=== PATIENT | female | born 1955 | race Caucasian/White ===

== ENCOUNTER 2017-03-09 21:11 | Inpatient (IN) ==
[2017-03-09] MEDS ORDERED: 0.9 % Sodium Chloride 1,000 ML IVC ONE (21:45)
[2017-03-09 22:09] LABS: Basophils % 0.1 %; Eosinophils # 0.1 K/mcL (0.0-0.6); Eosinophils % 0.4 %; Hematocrit 42.3 % (35.3-44.9); Hemoglobin 14.1 g/dL (11.5-15.4); Immature Granulocytes % 0.2 % (0-4); Lymphocytes # 1.6 K/mcL (0.6-4.6); Lymphocytes % 11.9 %; Mean Corpuscular HGB Conc 33.3 g/dL (31.6-35.5); Mean Corpuscular Hemoglobin 32.3 pg (28.0-33.3); Mean Platelet Volume 9.2 fL (9.4-12.4); Monocytes % 7.1 %; Neutrophils # 11.1 K/mcL (1.6-8.9); Platelet Count 310 K/mcL (140-400); Red Blood Count 4.36 M/mcL (3.82-4.97); Red Cell Distribution Width 12.8 % (11.5-14.5); Segmented Neutrophils % 80.3 %
[2017-03-09 22:17] LABS: INR 1.1; Prothrombin Time 11.5 Seconds (9.4-12.1)
[2017-03-09 22:20] LABS: Activated Partial Thrombo Time 27.5 Seconds (26.0-36.0)
[2017-03-09 22:24] LABS: BUN/Creatinine Ratio 25 (6-26); Blood Urea Nitrogen 23 mg/dL (7-20); Calcium 9.7 mg/dL (8.6-10.8); Carbon Dioxide 27 mEq/L (19-29); Chloride 101 mEq/L (98-109); Glucose 116 mg/dL (70-99); Osmolality,Calculated 295 (280-300); Sodium 140 mEq/L (136-145); eGFR For African Americans > 60 (> 60); eGFR For Non-African Americans > 60 (> 60)
[2017-03-09 22:25] LABS: Potassium 3.6 mEq/L (3.5-4.5)
[2017-03-09] MEDS ORDERED: MetroNIDAZOLE 500 MG/100 ML 500 MG/100 ML BAG IVPB ONE (22:36)
[2017-03-09] MEDS ORDERED: Levofloxacin 750 MG/150 ML 750 MG/150 ML BAG IVPB ONE (22:36)
[2017-03-09 22:45] LABS: Alanine Aminotransferase 17 Units/L (0-55); Albumin 3.7 g/dL (3.5-5.0); Albumin/Globulin Ratio 0.9 (1.1-2.2); Alkaline Phosphatase 80 Units/L (38-126); Aspartate Amino Transferase 23 Units/L (5-34); Bilirubin,Direct 0.1 mg/dL (0.0-0.5); Bilirubin,Indirect 0.3 mg/dL (0.0-1.2); Bilirubin,Total 0.4 mg/dL (0.2-1.2); Globulin 4.3 g/dL (2.4-3.5)
[2017-03-09] MEDS ORDERED: SUMAtriptan 6 MG/0.5 ML SQ ONE (23:10)
--- NOTE | 2017-03-09 23:20 | Emergency Department Note ---
START Narrative - START START: I examined this patient and my medical decision-making was reviewed with the Resident Physician. I agree with the documented findings, disposition and treatment plan as described except to the extent set forth below. 61-year-old female presents emergency room for abdominal pain. She has had explosive diarrhea and cramping and bloody stool. CT abdomen and pelvis shows evidence of diffuse colitis involving multiple portions of the colon. She also has evidence of diverticulitis. She has had this bloody diarrhea. She had a normal lactate. I do not suspect ischemic bowel at this time. Her EKG did not show any evidence of atrial fibrillation. The CT was done without IV contrast initially as I felt we needed to evaluate for other things first and avoid the contrast. She is getting IV fluids as well as pain control. We have ordered Levaquin and Flagyl. She had a previous colon resection secondary to bowel perforation from diverticulitis. This surgery was done in 2007 at [facility]. She is hemodynamically stable at this time. She is in town visiting family for the . Critical care time 35 minutes spent and medical management of severe colitis and diverticulitis as well as bloody diarrhea with IV fluids and IV antibiotics.
--- NOTE | 2017-03-09 23:41 | Emergency Department Note ---
Disposition Clinical Impression: Diverticulitis GI bleed Qualifiers: GI bleed type/associated pathology: unspecified gastrointestinal hemorrhage type Qualified Code(s): K92.2 - Gastrointestinal hemorrhage, unspecified Disposition: Admitted As Inpatient Condition: Fair Referrals: NONE,PCP [Primary Care Provider] - Forms: ED Satisfaction Letter Time of Disposition: 00:05 General Adult HPI - General Chief complaint: ED GI Bleed Stated complaint: abdominal pain/ GI bleeding Time Seen by Provider: 03/09/17 21:22 Source: patient Mode of arrival: ambulatory Limitations: no limitations Nursing Notes Reviewed: Yes Vital Signs Reviewed: Yes - History of Present Illness HPI Narrative: 61-year-old female presenting to the emergency department she complained of abdominal pain and blood per rectum. Patient states she was driving in from [place] when during the drive started getting abdominal pain. She states she felt like she had a use the restroom but every time she stops she only had a small bowel movement. When she got to her destination patient states she spent the entire evening and this morning having explosive diarrhea. She states late last evening she noticed blood on her toilet paper and then this morning when she had multiple episodes of diarrhea she noticed blood in the toilet. Patient has a significant past medical history of complicated Diverticulitis with a colectomy in the past. Patient states she has nausea but denies vomiting. She denies any other bleeding including gingival bleeding or hematuria. Patient is otherwise healthy. Pain Scale: 8 - Related Data Home Medications Medication Instructions Recorded Confirmed Atenolol [Tenormin] 50 mg PO DAILY 03/09/17 03/09/17 Calcium Carbonate [Calcium] 1,000 mg PO DAILY 03/09/17 03/09/17 Cyanocobalamin (B-12) [Vitamin B12] 1,000 mcg IM QMONTH 03/09/17 03/09/17 DULoxetine [Cymbalta] 90 mg PO DAILY 03/09/17 03/09/17 Ergocalciferol (VITAMIN D2) 50,000 unit PO Q2W 03/09/17 03/09/17 [Vitamin D2] Gabapentin [Neurontin] 300 mg PO HS 03/09/17 03/09/17 Gabapentin [Neurontin] 600 mg PO QAM 03/09/17 03/09/17 Lisinopril [Zestril] 5 mg PO DAILY 03/09/17 03/09/17 Teriparatide [Forteo] 2.4 ml SQ HS 03/09/17 03/09/17 Trazodone HCl 100 mg PO HS 03/09/17 03/09/17 hydroCHLOROthiazide 25 mg PO DAILY 03/09/17 03/09/17 [Hydrochlorothiazide] Allergies Allergy/AdvReac Type Severity Reaction Status Date / Time acetaminophen [From NyQuil] Allergy Anaphylaxis Verified 03/09/17 21:19 Cefadroxil [From Duricef] Allergy Difficulty Verified 03/09/17 23:06 Breathing dextromethorphan Allergy Anaphylaxis Verified 03/09/17 21:19 [From NyQuil] doxycycline Allergy Hives Verified 03/09/17 23:06 doxylamine [From NyQuil] Allergy Anaphylaxis Verified 03/09/17 21:19 Erythromycin Base Allergy Hives Verified 03/09/17 23:06 Grapefruit Allergy Anaphylaxis Verified 03/09/17 21:19 Hydromorphone [From Dilaudid] Allergy Hallucinati Verified 03/09/17 23:06 ng levofloxacin [From Levaquin] Allergy Gastrointestinal Verified 03/09/17 23:08 Upset morphine Allergy Confusion Verified 03/09/17 23:06 pseudoephedrine [From NyQuil] Allergy Difficulty Verified 03/09/17 23:06 Breathing Sulfa (Sulfonamide Allergy Hives Verified 03/09/17 21:19 Antibiotics) fentanyl AdvReac Difficulty Verified 03/09/17 21:19 Breathing All systems ED: reviewed and negative except as stated. Constitutional: Denies: fever, chills Eyes: Reports: as per HPI ENT ED: Reports: as per HPI Cardiovascular: Denies: chest pain, palpitations Respiratory: Denies: cough, dyspnea, wheezes Gastrointestinal: Reports: abdominal pain, nausea, diarrhea, hematemesis Genitourinary: Reports: as per HPI Musculoskeletal: Reports: as per HPI Integumentary: Denies: rash, abrasion, lesions Neurological: Reports: as per HPI Psychiatric: Reports: as per HPI Endocrine: Reports: as per HPI Hematological/Lymphatic: Reports: as per HPI Allergic/Immunologic: Reports: as per HPI Past Medical History - Past Medical History Attestation: Yes The following information was validated with the patient. Medical history: Reports: GERD, hypertension, migraine, osteoporosis, other Psychiatric history: Reports: depression - Social History Smoking Status: Never smoker Alcohol use: Reports: occasionally Drug use: Reports: none Physical Exam - General Limitations: no limitations General appearance: alert, in no apparent distress - Head Head exam: atraumatic, normocephalic, normal inspection - Eye Eye exam: Present: normal appearance. Absent: scleral icterus, conjunctival injection - Chest Chest inspection: Present: normal inspection, symmetric chest wall rise. Absent : tenderness, rash - Respiratory Respiratory exam: Present: normal lung sounds bilaterally. Absent: respiratory distress, wheezes - Cardiovascular Cardiovascular exam: Present: normal rhythm, tachycardia, normal heart sounds - Abdominal Exam Abdominal exam: Present: soft, tenderness. Absent: guarding, rebound, rigidity , organomegaly, Malone's sign, Rovsing's sign, tenderness at McBurney's Point Abdominal tenderness: Present: diffuse, moderate - Extremities Exam Extremities exam: Present: normal inspection, full ROM - Neurological Exam Neurological exam: Present: alert, oriented X3 - Psychiatric Psychiatric exam: Present: normal affect, normal mood - Skin Skin exam: Present: warm, intact Course Course Narrative: 61-year-old female presenting to the emergency Department chief complaint of blood per rectum. Concern for GI bleed at this time. Patient is nontoxic appearing and able to respond to questions appropriately. Her vital signs are stable. We will obtain basic lab work including type and screen along with abdominal labs. We will also obtain a CT of the abdomen and pelvis. Disposition pending results. Patient's alert and oriented 3 in the room with stable vital signs. She agrees with this plan. We will also provide the patient with a liter of fluids at this time. - Reevaluation(s) Reevaluation #1: Patient's CT results have come back and show 1. Large segments of transverse colon, splenic flexure, and descending colon demonstrate wall thickening with adjacent inflammatory changes. This may be related to an infectious/inflammatory colitis. Underlying ischemic bowel cannot entirely be excluded given this study did not use intravenous contrast. This likely represents the source for GI bleeding. 2. Acute descending/sigmoid colon diverticulitis. No abscess or fluid collection. Patient also has a white count of 13.8 and a positive stool culture. At this time we will begin antibiotics via IV. We will admit the patient at this time. Page at hospitalist has been completed. Patient's alert and oriented 3 in the room with stable vital signs. Patient agrees with this plan. Reevaluation #2: Hospitalist on-call Dr. Chen excepts the patient at this time. Patient's alert and oriented 3 in the room. Her vital signs are stable at time of admission. Time: 00:04 Vital Signs Temperature 97.8 F 03/09/17 21:12 Pulse Rate 101 03/09/17 21:12 Respiratory Rate 16 03/09/17 21:12 Blood Pressure 105/59 03/09/17 21:12 O2 Sat by Pulse Oximetry 97 03/09/17 21:12 Temperature 97.8 F 03/09/17 21:12 Pulse Rate 89 03/09/17 22:53 Respiratory Rate 18 03/09/17 22:53 Blood Pressure 132/73 03/09/17 22:53 O2 Sat by Pulse Oximetry 98 03/09/17 22:53 Oxygen Delivery Oxygen Delivery Room Air Medical Decision Making - Lab Data Result diagrams: 03/09/17 22:00 03/09/17 22:00 Lab Results 03/09/17 03/09/17 03/09/17 Range/Units 22:00 22:00 22:00 WBC 13.8 H (4.3-11.1) K/mcL RBC 4.36 (3.82-4.97) M/mcL Hgb 14.1 (11.5-15.4) g/dL Hct 42.3 (35.3-44.9) % MCV 97.0 (83.0-100.0) fL MCH 32.3 (28.0-33.3) pg MCHC 33.3 (31.6-35.5) g/dL RDW 12.8 (11.5-14.5) % Plt Count 310 (140-400) K/mcL MPV 9.2 L (9.4-12.4) fL Immature Gran % 0.2 (0-4) % Seg Neutrophils % 80.3 % Lymphocytes % 11.9 % Monocytes % 7.1 % Eosinophils % 0.4 % Basophils % 0.1 % Neutrophils # 11.1 H (1.6-8.9) K/mcL Lymphocytes # 1.6 (0.6-4.6) K/mcL Monocytes # 1.0 (0.0-1.3) K/mcL Eosinophils # 0.1 (0.0-0.6) K/mcL Basophils # 0.0 (0.0-0.2) K/mcL PT 11.5 (9.4-12.1) Seconds INR 1.1 APTT 27.5 (26.0-36.0) Seconds Sodium 140 (136-145) mEq/L Potassium 3.6 (3.5-4.5) mEq/L Chloride 101 (98-109) mEq/L Carbon Dioxide 27 (19-29) mEq/L BUN 23 H (7-20) mg/dL Creatinine 0.91 (0.57-1.11) mg/dL Est GFR ( Amer) > 60 (> 60) Est GFR (Non-Af Amer) > 60 (> 60) BUN/Creatinine Ratio 25 (6-26) Glucose 116 H (70-99) mg/dL Calculated Osmolality 295 (280-300) Lactic Acid (0.5-2.2) mmol/L Calcium 9.7 (8.6-10.8) mg/dL Total Bilirubin 0.4 (0.2-1.2) mg/dL Direct Bilirubin 0.1 (0.0-0.5) mg/dL Indirect Bilirubin 0.3 (0.0-1.2) mg/dL AST 23 (5-34) Units/L ALT 17 (0-55) Units/L Alkaline Phosphatase 80 (38-126) Units/L Serum Total Protein 8.0 (6.0-8.3) g/dL Albumin 3.7 (3.5-5.0) g/dL Globulin 4.3 H (2.4-3.5) g/dL Albumin/Globulin Ratio 0.9 L (1.1-2.2) Stool Occult Blood (Negative) Specimen Rejected Blood Type Antibody Screen 03/09/17 03/09/17 03/09/17 Range/Units 22:00 22:00 22:02 WBC (4.3-11.1) K/mcL RBC (3.82-4.97) M/mcL Hgb (11.5-15.4) g/dL Hct (35.3-44.9) % MCV (83.0-100.0) fL MCH (28.0-33.3) pg MCHC (31.6-35.5) g/dL RDW (11.5-14.5) % Plt Count (140-400) K/mcL MPV (9.4-12.4) fL Immature Gran % (0-4) % Seg Neutrophils % % Lymphocytes % % Monocytes % % Eosinophils % % Basophils % % Neutrophils # (1.6-8.9) K/mcL Lymphocytes # (0.6-4.6) K/mcL Monocytes # (0.0-1.3) K/mcL Eosinophils # (0.0-0.6) K/mcL Basophils # (0.0-0.2) K/mcL PT (9.4-12.1) Seconds INR APTT (26.0-36.0) Seconds Sodium (136-145) mEq/L Potassium (3.5-4.5) mEq/L Chloride (98-109) mEq/L Carbon Dioxide (19-29) mEq/L BUN (7-20) mg/dL Creatinine (0.57-1.11) mg/dL Est GFR ( Amer) (> 60) Est GFR (Non-Af Amer) (> 60) BUN/Creatinine Ratio (6-26) Glucose (70-99) mg/dL Calculated Osmolality (280-300) Lactic Acid 1.4 (0.5-2.2) mmol/L Calcium (8.6-10.8) mg/dL Total Bilirubin (0.2-1.2) mg/dL Direct Bilirubin (0.0-0.5) mg/dL Indirect Bilirubin (0.0-1.2) mg/dL AST (5-34) Units/L ALT (0-55) Units/L Alkaline Phosphatase (38-126) Units/L Serum Total Protein (6.0-8.3) g/dL Albumin (3.5-5.0) g/dL Globulin (2.4-3.5) g/dL Albumin/Globulin Ratio (1.1-2.2) Stool Occult Blood Positive A (Negative) Specimen Rejected Hemolyzed Blood Type Antibody Screen 03/09/17 Range/Units 22:30 WBC (4.3-11.1) K/mcL RBC (3.82-4.97) M/mcL Hgb (11.5-15.4) g/dL Hct (35.3-44.9) % MCV (83.0-100.0) fL MCH (28.0-33.3) pg MCHC (31.6-35.5) g/dL RDW (11.5-14.5) % Plt Count (140-400) K/mcL MPV (9.4-12.4) fL Immature Gran % (0-4) % Seg Neutrophils % % Lymphocytes % % Monocytes % % Eosinophils % % Basophils % % Neutrophils # (1.6-8.9) K/mcL Lymphocytes # (0.6-4.6) K/mcL Monocytes # (0.0-1.3) K/mcL Eosinophils # (0.0-0.6) K/mcL Basophils # (0.0-0.2) K/mcL PT (9.4-12.1) Seconds INR APTT (26.0-36.0) Seconds Sodium (136-145) mEq/L Potassium (3.5-4.5) mEq/L Chloride (98-109) mEq/L Carbon Dioxide (19-29) mEq/L BUN (7-20) mg/dL Creatinine (0.57-1.11) mg/dL Est GFR ( Amer) (> 60) Est GFR (Non-Af Amer) (> 60) BUN/Creatinine Ratio (6-26) Glucose (70-99) mg/dL Calculated Osmolality (280-300) Lactic Acid (0.5-2.2) mmol/L Calcium (8.6-10.8) mg/dL Total Bilirubin (0.2-1.2) mg/dL Direct Bilirubin (0.0-0.5) mg/dL Indirect Bilirubin (0.0-1.2) mg/dL AST (5-34) Units/L ALT (0-55) Units/L Alkaline Phosphatase (38-126) Units/L Serum Total Protein (6.0-8.3) g/dL Albumin (3.5-5.0) g/dL Globulin (2.4-3.5) g/dL Albumin/Globulin Ratio (1.1-2.2) Stool Occult Blood (Negative) Specimen Rejected Blood Type A POSITIVE Antibody Screen NEGATIVE - EKG Data EKG #1 EKG attestation: Yes I reviewed and interpreted this EKG. EKG results narrative: Sinus rhythm. 80 bpm. NM interval 168, QRS 86, QTC 401. No signs of ST segment elevation or acute ischemia.
[2017-03-09] MEDS ORDERED: Ondansetron 4 MG/2 ML VIAL IVP ONE (23:54)
[2017-03-09] MEDS ORDERED: Dicyclomine 20 MG/2 ML AMPUL IM ONE (23:54)
--- NOTE | 2017-03-10 00:45 | Internal Med History&Physical ---
<Keyur Crow - Last Filed: 03/10/17 02:24> Date of Encounter: 03/10/17 Time of Encounter: 00:42 Assessment and Plan (1) Diverticulitis Current visit: Yes Status: Acute Abd CT without contrast: - Wall thickening in transverse colon, splenic flexure and descending colon with adjacent inflammatory changes suggesting infectious/inflammatory colitis. - There is acute descending/sigmoid colon diverticulitis History of diverticulitis with perforation resulting in partial colectomy in 2007 NPO IVF IV Antibiotics - Levaquin and Flagyl (Day 2) Pain control Supportive care GI followup on discharge (2) GI bleed Current visit: Yes Status: Acute FOBT positive H & H normal VSS Likely from diverticulitis Colonoscopy one year ago with no history of abnormal findings CBC in the am Qualifiers: GI bleed type/associated pathology: unspecified gastrointestinal hemorrhage type Qualified Code(s): K92.2 - Gastrointestinal hemorrhage, unspecified (3) Abdominal pain Current visit: Yes Status: Acute See above Qualifiers: Abdominal location: right upper quadrant Qualified Code(s): R10.11 - Right upper quadrant pain (4) Leukocytosis Current visit: Yes Status: Acute WBC 13.8. Will trend. See above for management. Qualifiers: Leukocytosis type: unspecified Qualified Code(s): D72.829 - Elevated white blood cell count, unspecified (5) Migraine Current visit: Yes Status: Acute Imitrex for now Patient is slated for Botox injections in April Qualifiers: Migraine type: unspecified Status migrainosus presence: without status migrainosus Intractability: intractable Qualified Code(s): G43.919 - Migraine, unspecified, intractable, without status migrainosus (6) HTN (hypertension) Current visit: Yes Status: Chronic Starting home medications. Qualifiers: Hypertension type: essential hypertension Qualified Code(s): I10 - Essential (primary) hypertension (7) Depression Current visit: Yes Status: Chronic Home meds started. Qualifiers: Depression Type: unspecified Qualified Code(s): F32.9 - Major depressive disorder, single episode, unspecified Internal Medicine - H&P: HPI Chief complaint: adominal pain Admitted From: Home Plans for Post Hospital Care: Home History of present illness: Ms. Egan is a very pleasant 61 year old female with past medical history of hypertension, depression GERD, migraines, fibromyaglia and osteoporosis who presents to the [facility] emergency department with a chief complaint of severe diarrhea with blood in her stool. She was traveling from [place] to [place] for [employer] [place]ivities and started experiencing severe abdominal pain. The pain started in her epigastric region that radiated down to her umbilicus and laterally to her left and right. Pain is 8/10. The pain is worsened and improved with positioning and Gas-X pills did not relief. She is additionally complaining of nausea without any emesis. Prior to her departure, she had been complaining of RUQ pain for 2 weeks that radiated to her back but has now transitioned to the midline. During her drive, she had several bowel movements but once she arrived, she experienced multiple bouts of diarrhea that has bright red blood at first, and now is maroon colored. No history of this complaint previously. On arrival to the ED, she was mildly tachycardic 101, afebrile, WBC 13.8, lactic acid 1.4, Cr 0.91 and positive FOBT. EKG normal. Abd CT demonstrates wall thickening in transverse colon, splenic flexure and descending colon with adjacent inflammatory changes suggesting infectious/inflammatory colitis. There is acute descending/sigmoid colon diverticulitis. She was given IVF, Levaquin and Flagyl. On evaluation, she reports no tobacco use, occasional EtOH, no illicit drugs. Father had history of diverticulitis. Last known colonoscopy was 1 year old that showed diverticulosis and benign polyps. She previously had a serious episode of diverticulitis resulting in perforation and partial colectomy in 2007 at [facility]. Right oopherectomy at age [age] years old. No other abdminal surgeries. Ms. Egan will be admitted to [facility] for further workup and management. Past Med Surg Social Fam HX - Past Medical History Medical history: GERD, hypertension, migraine, osteoporosis, other Psychiatric history: depression - Social History Smoking Status: Never smoker Alcohol use: occasionally Drug use: none Internal Medicine - H&P: Meds Atenolol [Tenormin] 50 mg PO DAILY 03/09/17 [History] Calcium Carbonate [Calcium] 1,000 mg PO DAILY 03/09/17 [History] Cyanocobalamin (B-12) [Vitamin B12] 1,000 mcg IM QMONTH 03/09/17 [History] DULoxetine [Cymbalta] 90 mg PO DAILY 03/09/17 [History] Ergocalciferol (VITAMIN D2) [Vitamin D2] 50,000 unit PO Q2W 03/09/17 [History] Gabapentin [Neurontin] 300 mg PO HS 03/09/17 [History] Gabapentin [Neurontin] 600 mg PO QAM 03/09/17 [History] Lisinopril [Zestril] 5 mg PO DAILY 03/09/17 [History] Teriparatide [Forteo] 2.4 ml SQ HS 03/09/17 [History] Trazodone HCl 100 mg PO HS 03/09/17 [History] hydroCHLOROthiazide [Hydrochlorothiazide] 25 mg PO DAILY 03/09/17 [History] 3 Allergy/AdvReac Type Severity Reaction Status Date / Time acetaminophen [From NyQuil] Allergy Anaphylaxis Verified 03/09/17 21:19 Cefadroxil [From Duricef] Allergy Difficulty Verified 03/09/17 23:06 Breathing dextromethorphan Allergy Anaphylaxis Verified 03/09/17 21:19 [From NyQuil] doxycycline Allergy Hives Verified 03/09/17 23:06 doxylamine [From NyQuil] Allergy Anaphylaxis Verified 03/09/17 21:19 Erythromycin Base Allergy Hives Verified 03/09/17 23:06 Grapefruit Allergy Anaphylaxis Verified 03/09/17 21:19 Hydromorphone [From Dilaudid] Allergy Hallucinati Verified 03/09/17 23:06 ng levofloxacin [From Levaquin] Allergy Gastrointestinal Verified 03/09/17 23:08 Upset morphine Allergy Confusion Verified 03/09/17 23:06 pseudoephedrine [From NyQuil] Allergy Difficulty Verified 03/09/17 23:06 Breathing Sulfa (Sulfonamide Allergy Hives Verified 03/09/17 21:19 Antibiotics) fentanyl AdvReac Difficulty Verified 03/09/17 21:19 Breathing All Systems PM: A 10-system review of systems was performed and is negative for pertinent findings except as documented above in the HPI. - Constitutional Constitutional: no fatigue, no night sweats, no weight loss - EENT Eyes: no change in vision - Cardiovascular Cardiovascular ROS IM: no chest pain, no diaphoresis, no lightheadedness, no palpitations - Respiratory Respiratory: no cough - Gastrointestinal Gastrointestinal: as per HPI - Genitourinary Genitourinary: no dysuria - Musculoskeletal Musculoskeletal ROS IM: myalgias - Neurological Neurological ROS: no confusion, no dizziness, no headache(s) - Constitutional Vitals: Temp Pulse Resp BP Pulse Ox 97.8 F 91 18 143/76 97 03/09/17 21:12 03/10/17 00:19 03/10/17 00:19 03/10/17 00:19 03/10/17 00:19 General appearance: Present: A&O X 3, no acute distress - Head Head exam: Present: atraumatic, normocephalic - Eye Eye exam: Present: conjuntiva pink, sclera anicteric - ENT ENT exam: Present: mucous membranes moist - Neck Neck exam general surgery: Present: trachea midline - Respiratory Respiratory exam: Present: CTAB - Cardiovascular Cardiovascular exam: Present: RRR, +S1, +S2 - GI/Abdominal GI/Abdominal exam: Present: rebound, soft, tenderness (RUQ and RLQ). Absent: guarding - Rectal Rectal exam: Present: deferred - Extremities Exam Extremities exam: Present: normal capillary refill, normal inspection, warm. Absent: calf tenderness, pedal edema - Neurological Exam Neurological exam: Present: oriented X3, no focal deficits - Psychiatric Psychiatric exam: Present: normal affect, normal mood - Skin Skin exam: Present: dry, warm. Absent: cyanosis, diaphoretic Internal Med - H&P Results - Labs CBC & Chem 7: 03/09/17 22:00 03/09/17 22:00 <Beni Chen - Last Filed: 03/10/17 05:00> Date of Encounter: 03/10/17 Internal Medicine - H&P: HPI History of present illness: Ms. Egan is a 61 year old female All Systems PM: A 10-system review of systems was performed and is negative for pertinent findings except as documented above in the HPI. - Constitutional Vitals: Temp Pulse Resp BP Pulse Ox 98.4 F 95 14 119/64 92 03/10/17 03:21 03/10/17 03:21 03/10/17 03:21 03/10/17 03:21 03/10/17 03:21 Internal Med - H&P Results - Labs CBC & Chem 7: 03/09/17 22:00 03/09/17 22:00 - Attending Attestation I conducted a face to face diagnostic evaluation of this patient and my medical decision-making was reviewed with the Resident Physician, Dr. Keyur Crow. I agree with the documented findings, disposition and treatment plan as described except to the extent set forth below: Patient is in no acute distress. Abdomen is soft, nontender and nondistended with positive bowel sounds. Plan: IV fluids, IV Levaquin and Flagyl. IV Zofran for nausea and IV morphine for pain. We will hold off on surgical consult for now.
[2017-03-10] MEDS ORDERED: Naloxone 0.4 MG/ML INJ IVP PRN (01:52)
[2017-03-10] MEDS ORDERED: Ketorolac 15 MG/ML VIAL IVP PRN (02:03)
[2017-03-10] MEDS ORDERED: SUMAtriptan 6 MG/0.5 ML SQ PRN (02:19)
[2017-03-10] MEDS ORDERED: traZODone 50 MG TABLET PO ONE (02:21)
[2017-03-10] MEDS ORDERED: Gabapentin 300 MG CAPSULE PO ONE (02:22)
[2017-03-10] MEDS: 0.9 % Sodium Chloride 1,000 ML IVC SCH ×2 (02:51→16:37)
[2017-03-10] MEDS: traZODone 50 MG TABLET PO SCH ×2 (02:54→21:15)
[2017-03-10] MEDS: MetroNIDAZOLE 500 MG/100 ML 500 MG/100 ML BAG IVPB SCH ×3 (05:40→18:15)
[2017-03-10 05:44] LABS: Basophils % 0.2 %; Eosinophils # 0.1 K/mcL (0.0-0.6); Eosinophils % 0.6 %; Hematocrit 36.2 % (35.3-44.9); Immature Granulocytes % 0.2 % (0-4); Lymphocytes # 1.3 K/mcL (0.6-4.6); Mean Corpuscular HGB Conc 32.6 g/dL (31.6-35.5); Mean Corpuscular Hemoglobin 32.1 pg (28.0-33.3); Mean Corpuscular Volume 98.4 fL (83.0-100.0); Mean Platelet Volume 9.2 fL (9.4-12.4); Monocytes # 0.8 K/mcL (0.0-1.3); Neutrophils # 9.3 K/mcL (1.6-8.9); Platelet Count 237 K/mcL (140-400); Red Blood Count 3.68 M/mcL (3.82-4.97); Red Cell Distribution Width 12.9 % (11.5-14.5)
[2017-03-10 05:50] LABS: Hemoglobin 11.8 g/dL (11.5-15.4)
[2017-03-10 06:03] LABS: BUN/Creatinine Ratio 23 (6-26); Blood Urea Nitrogen 18 mg/dL (7-20); Calcium 8.7 mg/dL (8.6-10.8); Carbon Dioxide 31 mEq/L (19-29); Chloride 103 mEq/L (98-109); Glucose 117 mg/dL (70-99); Osmolality,Calculated 295 (280-300); Potassium 3.7 mEq/L (3.5-4.5); Sodium 141 mEq/L (136-145); eGFR For African Americans > 60 (> 60); eGFR For Non-African Americans > 60 (> 60)
[2017-03-10] MEDS: hydroCHLOROthiazide 25 MG TABLET PO SCH (08:19)
--- NOTE | 2017-03-10 14:27 | Internal Med Progress Note ---
Date of Encounter: 03/10/17 Time of Encounter: 14:25 - Assessment and plan (1) Diverticulitis Current Visit: Yes Status: Acute (2) GI bleed Current Visit: Yes Status: Acute Qualifiers: GI bleed type/associated pathology: unspecified gastrointestinal hemorrhage type Qualified Code(s): K92.2 - Gastrointestinal hemorrhage, unspecified (3) HTN (hypertension) Current Visit: Yes Status: Chronic Qualifiers: Hypertension type: essential hypertension Qualified Code(s): I10 - Essential (primary) hypertension - Subjective Interval history: Admitted for acute diverticulitis. Has history of bowel perforation with previous episodes of diverticulitis and had multiple surgeries afterward. Considered high risk therefore we will watch her closely and follow her fever and lymphocyte count. 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 Diarrhea has already stopped. There was a concern if she is bleeding but by her description it appears that most of the time she has noticed bright red blood on toilet paper. Follow hemoglobin. Can be started on clear liquids. - Constitutional Vitals: Temp Pulse Resp BP Pulse Ox 99.1 F 94 16 101/63 96 03/10/17 11:21 03/10/17 11:21 03/10/17 11:21 03/10/17 11:21 03/10/17 11:21 General appearance: Present: A&O X 3, no acute distress - Head Head exam: Present: atraumatic, normocephalic - Eye Eye exam: Present: PERRL, conjuntiva pink, sclera anicteric Pupils: Present: PERRL - Neck Neck exam general surgery: Present: supple, trachea midline. Absent: lymphadenopathy - Respiratory Respiratory exam: Present: CTAB. Absent: accessory muscle use, rales, rhonchi, wheezes - Cardiovascular Cardiovascular exam: Present: RRR, +S1, +S2. Absent: diastolic murmur, gallop, rubs, systolic murmur - GI/Abdominal GI/Abdominal exam: Present: hypoactive bowel sounds, normal bowel sounds, soft, tenderness, no peritoneal signs. Absent: distended - Extremities Exam Extremities exam: Present: warm, radial pulses palpable and symmetrical. Absent : calf tenderness, cyanotic, pedal edema - Neurological Exam Neurological exam: Present: CN II-XII intact, oriented X3, no focal deficits. Absent: pronater drift, facial droop, speech deficit - Skin Skin exam: Present: dry, intact Internal Medicine: Result - Labs CBC & Chem 7: 03/10/17 05:03 03/10/17 05:03 Labs: Short CBC 03/10/17 Range/Units 05:03 WBC 11.5 H (4.3-11.1) K/mcL Hgb 11.8 D (11.5-15.4) g/dL Hct 36.2 (35.3-44.9) % Plt Count 237 (140-400) K/mcL Neutrophils # 9.3 H (1.6-8.9) K/mcL BMP 03/10/17 05:03 Sodium 141 Potassium 3.7 Chloride 103 Carbon Dioxide 31 H BUN 18 Creatinine 0.80 Glucose 117 H Calcium 8.7 - ABG Interpretation ABG results: PT/INR, D-dimer PT 11.5 Seconds (9.4-12.1) 03/09/17 22:00 Consult Discharge Plan - Plan Referrals: NONE,PCP [Primary Care Provider] -
--- NOTE | 2017-03-10 20:13 | Electrocardiograph Report ---
[place] [id number] Test Date: 2017-03-09 Pat Name: Demetrius Egan Department: 102 Room: 3A13 Gender: F Transportation Technician: : 1955 Requested By: Jo Esteban Order Number: [id number] Reading MD: Huber Oropeza MD Measurements Intervals Bode Rate: 88 P: 6 NM: 168 QRS: 31 QRSD: 86 T: 28 QT: 355 QTc: 401 Interpretive Statements SINUS RHYTHM Electronically Signed On 03-10-2017 20:11:36 EST by Huber Oropeza MD
[2017-03-10] MEDS: Gabapentin 300 MG CAPSULE PO SCH (21:15)
[2017-03-11] MEDS: MetroNIDAZOLE 500 MG/100 ML 500 MG/100 ML BAG IVPB SCH ×5 (00:08→23:48)
[2017-03-11] MEDS: 0.9 % Sodium Chloride 1,000 ML IVC SCH (05:03)
[2017-03-11 06:17] LABS: Basophils % 0.2 %; Eosinophils # 0.2 K/mcL (0.0-0.6); Eosinophils % 1.8 %; Hematocrit 32.8 % (35.3-44.9); Hemoglobin 10.5 g/dL (11.5-15.4); Immature Granulocytes % 0.3 % (0-4); Lymphocytes # 1.8 K/mcL (0.6-4.6); Mean Corpuscular Hemoglobin 31.6 pg (28.0-33.3); Mean Corpuscular Volume 98.8 fL (83.0-100.0); Monocytes # 0.5 K/mcL (0.0-1.3); Neutrophils # 6.3 K/mcL (1.6-8.9); Platelet Count 220 K/mcL (140-400); Red Blood Count 3.32 M/mcL (3.82-4.97); Red Cell Distribution Width 12.8 % (11.5-14.5); Segmented Neutrophils % 71.7 %
[2017-03-11 06:28] LABS: Alanine Aminotransferase 9 Units/L (0-55); Albumin/Globulin Ratio 0.9 (1.1-2.2); Alkaline Phosphatase 53 Units/L (38-126); Aspartate Amino Transferase 10 Units/L (5-34); BUN/Creatinine Ratio 13 (6-26); Bilirubin,Total 0.4 mg/dL (0.2-1.2); Blood Urea Nitrogen 9 mg/dL (7-20); Calcium 8.3 mg/dL (8.6-10.8); Carbon Dioxide 30 mEq/L (19-29); Chloride 106 mEq/L (98-109); Glucose 102 mg/dL (70-99); Osmolality,Calculated 293 (280-300); Potassium 2.9 mEq/L (3.5-4.5); Sodium 142 mEq/L (136-145); eGFR For African Americans > 60 (> 60); eGFR For Non-African Americans > 60 (> 60)
[2017-03-11 06:32] LABS: Albumin 2.7 g/dL (3.5-5.0); Total Protein 5.7 g/dL (6.0-8.3)
[2017-03-11] MEDS: Gabapentin 300 MG CAPSULE PO SCH ×3 (08:00→20:53)
[2017-03-11] MEDS: Levofloxacin 750 MG/150 ML 750 MG/150 ML BAG IVPB SCH (08:01)
[2017-03-11] MEDS: hydroCHLOROthiazide 25 MG TABLET PO SCH (08:10)
[2017-03-11] MEDS ORDERED: Potassium Chloride 40 MEQ, Lidocaine 1% 2 ML in D5% in Water 500 ML IVPB ONE (08:49)
--- NOTE | 2017-03-11 08:52 | Internal Med Progress Note ---
Date of Encounter: 03/11/17 Time of Encounter: 08:51 - Assessment and plan (1) Diverticulitis Current Visit: Yes Status: Acute (2) GI bleed Current Visit: Yes Status: Acute Qualifiers: GI bleed type/associated pathology: unspecified gastrointestinal hemorrhage type Qualified Code(s): K92.2 - Gastrointestinal hemorrhage, unspecified (3) HTN (hypertension) Current Visit: Yes Status: Chronic Qualifiers: Hypertension type: essential hypertension Qualified Code(s): I10 - Essential (primary) hypertension - Subjective Interval history: Admitted for acute diverticulitis. Has history of bowel perforation with previous episodes of diverticulitis and had multiple surgeries afterward. Considered high risk therefore we will watch her closely and follow her fever and lymphocyte count. 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 Diarrhea has already stopped. There was a concern if she is bleeding but by her description it appears that most of the time she has noticed bright red blood on toilet paper. Follow hemoglobin. Can be started on clear liquids. 03/11 admitted for acute diverticulitis and patient is on Levaquin and Flagyl. Extensive history of previous bowel perforation during diverticulitis and multiple surgeries. labs reviewed. Potassium 2.9 will be supplemented. Order follow-up potassium and magnesium. She still has epigastric discomfort but lower abdominal pain is improving. No diarrhea. She is on Prilosec 20 twice a day. Still had having rectal blood which is not as bright red as it was before. Her hemoglobin has come down from 11.5-10.8 today but this could be just hemodilution. Admission hemoglobin was 14 still showed if she is actively bleeding. We will continue to follow the hemoglobin and if it falls rapidly than a consult GI for colonoscopy. Plan discussed with patient.. - Constitutional Vitals: Temp Pulse Resp BP Pulse Ox 98.8 F 84 12 101/64 92 03/11/17 06:54 03/11/17 06:54 03/11/17 06:54 03/11/17 06:54 03/11/17 06:54 General appearance: Present: A&O X 3, no acute distress - Head Head exam: Present: atraumatic, normocephalic - Eye Eye exam: Present: PERRL, conjuntiva pink, sclera anicteric Pupils: Present: PERRL - Neck Neck exam general surgery: Present: supple, trachea midline. Absent: lymphadenopathy - Respiratory Respiratory exam: Present: CTAB. Absent: accessory muscle use, rales, rhonchi, wheezes - Cardiovascular Cardiovascular exam: Present: RRR, +S1, +S2. Absent: diastolic murmur, gallop, rubs, systolic murmur - GI/Abdominal GI/Abdominal exam: Present: normal bowel sounds, soft, tenderness, no peritoneal signs. Absent: distended - Extremities Exam Extremities exam: Present: warm, radial pulses palpable and symmetrical. Absent : calf tenderness, cyanotic, pedal edema - Neurological Exam Neurological exam: Present: CN II-XII intact, oriented X3, no focal deficits. Absent: pronater drift, facial droop, speech deficit - Skin Skin exam: Present: dry, intact Internal Medicine: Result - Labs CBC & Chem 7: 03/11/17 05:54 03/11/17 05:54 Labs: Short CBC 03/11/17 Range/Units 05:54 WBC 8.8 (4.3-11.1) K/mcL Hgb 10.5 L (11.5-15.4) g/dL Hct 32.8 L (35.3-44.9) % Plt Count 220 (140-400) K/mcL Neutrophils # 6.3 (1.6-8.9) K/mcL BMP 03/11/17 05:54 Sodium 142 Potassium 2.9 L Chloride 106 Carbon Dioxide 30 H BUN 9 Creatinine 0.69 Glucose 102 H Calcium 8.3 L Liver Function 03/11/17 Range/Units 05:54 Total Bilirubin 0.4 (0.2-1.2) mg/dL AST 10 (5-34) Units/L ALT 9 (0-55) Units/L Alkaline Phosphatase 53 (38-126) Units/L Albumin 2.7 L D (3.5-5.0) g/dL - ABG Interpretation ABG results: PT/INR, D-dimer PT 11.5 Seconds (9.4-12.1) 03/09/17 22:00 Consult Discharge Plan - Plan Referrals: NONE,PCP [Primary Care Provider] -
[2017-03-11] MEDS: traZODone 50 MG TABLET PO SCH (20:52)
[2017-03-11] MEDS: Simethicone 80 MG TAB.CHEW PO PRN (23:48)
[2017-03-12] MEDS: 0.9 % Sodium Chloride 1,000 ML IVC SCH ×4 (02:56→20:26)
[2017-03-12 04:49] LABS: Basophils % 0.2 %; Eosinophils # 0.2 K/mcL (0.0-0.6); Eosinophils % 1.9 %; Hematocrit 32.2 % (35.3-44.9); Hemoglobin 10.5 g/dL (11.5-15.4); Immature Granulocytes % 0.4 % (0-4); Lymphocytes # 1.7 K/mcL (0.6-4.6); Lymphocytes % 19.6 %; Mean Corpuscular HGB Conc 32.6 g/dL (31.6-35.5); Mean Corpuscular Hemoglobin 31.8 pg (28.0-33.3); Mean Corpuscular Volume 97.6 fL (83.0-100.0); Mean Platelet Volume 9.2 fL (9.4-12.4); Monocytes # 0.5 K/mcL (0.0-1.3); Monocytes % 6.3 %; Neutrophils # 6.1 K/mcL (1.6-8.9); Platelet Count 223 K/mcL (140-400); Red Cell Distribution Width 12.6 % (11.5-14.5); Segmented Neutrophils % 71.6 %
[2017-03-12 05:09] LABS: Alanine Aminotransferase 8 Units/L (0-55); Albumin 2.6 g/dL (3.5-5.0); Albumin/Globulin Ratio 0.9 (1.1-2.2); Alkaline Phosphatase 51 Units/L (38-126); Aspartate Amino Transferase 10 Units/L (5-34); BUN/Creatinine Ratio 10 (6-26); Bilirubin,Total 0.4 mg/dL (0.2-1.2); Blood Urea Nitrogen 6 mg/dL (7-20); Calcium 8.5 mg/dL (8.6-10.8); Carbon Dioxide 26 mEq/L (19-29); Chloride 110 mEq/L (98-109); Globulin 2.9 g/dL (2.4-3.5); Glucose 94 mg/dL (70-99); Osmolality,Calculated 291 (280-300); Potassium 3.2 mEq/L (3.5-4.5); Sodium 142 mEq/L (136-145); Total Protein 5.5 g/dL (6.0-8.3); eGFR For African Americans > 60 (> 60); eGFR For Non-African Americans > 60 (> 60)
[2017-03-12 05:47] LABS: Platelet Estimate Normal (Normal)
[2017-03-12] MEDS: MetroNIDAZOLE 500 MG/100 ML 500 MG/100 ML BAG IVPB SCH ×4 (05:57→23:36)
[2017-03-12] MEDS ORDERED: Potassium Chloride 40 MEQ, Lidocaine 1% 2 ML in D5% in Water 500 ML IVPB ONE (08:18)
--- NOTE | 2017-03-12 08:24 | Internal Med Progress Note ---
Date of Encounter: 03/12/17 Time of Encounter: 08:19 - Assessment and plan (1) Diverticulitis Current Visit: Yes Status: Acute Assessment and plan: CT abdomen showed large segment of transverse and descending colon involving colitis as well as descending and sigmoid colon diverticulitis without any abscess or perforation. She has previous history of diverticulitis and perforation resulting in partial bowel resection. Currently on Levaquin and Flagyl and IV fluid. Afebrile and white count has normalized. Has not started by mouth yet (2) Colitis Current Visit: Yes Status: Acute Assessment and plan: Patient is still has epigastric and left-sided pain or lower abdominal pain is better In all transfer and descending colon and extensive colitis radiology raises question ischemic versus infectious. Increase IV fluid continue IV antibiotics still has (3) GI bleed Current Visit: Yes Status: Acute Assessment and plan: Sources perhaps colitis. Came in with hemoglobin of 14 and drops 4 points but now has stabilized. Qualifiers: GI bleed type/associated pathology: unspecified gastrointestinal hemorrhage type Qualified Code(s): K92.2 - Gastrointestinal hemorrhage, unspecified (4) HTN (hypertension) Current Visit: Yes Status: Chronic Assessment and plan: Continue home management and daily monitoring Qualifiers: Hypertension type: essential hypertension Qualified Code(s): I10 - Essential (primary) hypertension (5) Hypokalemia Current Visit: Yes Status: Acute Assessment and plan: Supplement potassium and recheck. - Subjective Interval history: Admitted for acute diverticulitis. Has history of bowel perforation with previous episodes of diverticulitis and had multiple surgeries afterward. Considered high risk therefore we will watch her closely and follow her fever and lymphocyte count. On examination abdomen is sliver lap tender without any rebound tenderness and active bowel sounds. Diarrhea has already stopped. There was a concern if she is bleeding but by her description it appears that most of the time she has noticed bright red blood on toilet paper. Follow hemoglobin. Can be started on clear liquids. 03/11 admitted for acute diverticulitis and patient is on Levaquin and Flagyl. Extensive history of previous bowel perforation during diverticulitis and multiple surgeries. labs reviewed. Potassium 2.9 will be supplemented. Order follow-up potassium and magnesium. She still has epigastric discomfort but lower abdominal pain is improving. No diarrhea. She is on Prilosec 20 twice a day. Still had having rectal blood which is not as bright red as it was before. Her hemoglobin has come down from 11.5-10.8 today but this could be just hemodilution. Admission hemoglobin was 14 still showed if she is actively bleeding. We will continue to follow the hemoglobin and if it falls rapidly than a consult GI for colonoscopy. Plan discussed with patient.. 03/12 she feels that she is improving but is still has abdominal pain. Diarrhea has not stopped. Continue IV antibiotic considering the fact that she has extensive colitis and diverticulitis. - Constitutional Vitals: Temp Pulse Resp BP Pulse Ox 97.9 F 71 16 128/83 98 03/12/17 07:14 03/12/17 07:14 03/12/17 07:14 03/12/17 07:14 03/12/17 07:14 General appearance: Present: A&O X 3, no acute distress - Head Head exam: Present: atraumatic, normocephalic - Eye Eye exam: Present: PERRL, conjuntiva pink, sclera anicteric Pupils: Present: PERRL - Neck Neck exam general surgery: Present: supple, trachea midline. Absent: lymphadenopathy - Respiratory Respiratory exam: Present: CTAB. Absent: accessory muscle use, rales, rhonchi, wheezes - Cardiovascular Cardiovascular exam: Present: RRR, +S1, +S2. Absent: diastolic murmur, gallop, rubs, systolic murmur - GI/Abdominal GI/Abdominal exam: Present: normal bowel sounds, soft, tenderness, no peritoneal signs. Absent: distended - Extremities Exam Extremities exam: Present: warm, radial pulses palpable and symmetrical. Absent : calf tenderness, cyanotic, pedal edema - Neurological Exam Neurological exam: Present: CN II-XII intact, oriented X3, no focal deficits. Absent: pronater drift, facial droop, speech deficit - Skin Skin exam: Present: dry, intact Internal Medicine: Result - Labs CBC & Chem 7: 03/12/17 04:36 03/12/17 04:36 Labs: Short CBC 03/12/17 Range/Units 04:36 WBC 8.5 (4.3-11.1) K/mcL Hgb 10.5 L (11.5-15.4) g/dL Hct 32.2 L (35.3-44.9) % Plt Count 223 (140-400) K/mcL Neutrophils # 6.1 (1.6-8.9) K/mcL BMP 03/12/17 04:36 Sodium 142 Potassium 3.2 L Chloride 110 H Carbon Dioxide 26 BUN 6 L Creatinine 0.63 Glucose 94 Calcium 8.5 L Liver Function 03/12/17 Range/Units 04:36 Total Bilirubin 0.4 (0.2-1.2) mg/dL AST 10 (5-34) Units/L ALT 8 (0-55) Units/L Alkaline Phosphatase 51 (38-126) Units/L Albumin 2.6 L (3.5-5.0) g/dL - ABG Interpretation ABG results: PT/INR, D-dimer PT 11.5 Seconds (9.4-12.1) 03/09/17 22:00 - VTE Documentation of Mechanical Device: Intermittent pneumatic compression device Consult Discharge Plan - Plan Referrals: NONE,PCP [Primary Care Provider] -
[2017-03-12] MEDS: hydroCHLOROthiazide 25 MG TABLET PO SCH (10:09)
[2017-03-12] MEDS: Gabapentin 300 MG CAPSULE PO SCH ×2 (10:10→20:25)
[2017-03-12] MEDS: Levofloxacin 750 MG/150 ML 750 MG/150 ML BAG IVPB SCH (10:10)
[2017-03-12] MEDS: Simethicone 80 MG TAB.CHEW PO PRN ×2 (10:19→20:23)
[2017-03-12] MEDS: traZODone 50 MG TABLET PO SCH (20:25)
[2017-03-12] MEDS: Ondansetron 4 MG/2 ML VIAL IVP PRN (23:35)
[2017-03-13 04:18] LABS: Basophils % 0.4 %; Eosinophils # 0.1 K/mcL (0.0-0.6); Eosinophils % 1.6 %; Hematocrit 30.5 % (35.3-44.9); Hemoglobin 10.2 g/dL (11.5-15.4); Immature Granulocytes % 0.6 % (0-4); Lymphocytes # 1.7 K/mcL (0.6-4.6); Lymphocytes % 20.5 %; Mean Corpuscular HGB Conc 33.4 g/dL (31.6-35.5); Mean Corpuscular Volume 95.6 fL (83.0-100.0); Monocytes # 0.6 K/mcL (0.0-1.3); Monocytes % 7.1 %; Neutrophils # 5.7 K/mcL (1.6-8.9); Platelet Count 230 K/mcL (140-400); Red Blood Count 3.19 M/mcL (3.82-4.97); Red Cell Distribution Width 12.4 % (11.5-14.5); Segmented Neutrophils % 69.8 %
[2017-03-13 04:33] LABS: Alanine Aminotransferase 8 Units/L (0-55); Albumin 2.6 g/dL (3.5-5.0); Albumin/Globulin Ratio 0.9 (1.1-2.2); Alkaline Phosphatase 47 Units/L (38-126); Aspartate Amino Transferase 12 Units/L (5-34); BUN/Creatinine Ratio 9 (6-26); Bilirubin,Total 0.4 mg/dL (0.2-1.2); Blood Urea Nitrogen 6 mg/dL (7-20); Calcium 8.3 mg/dL (8.6-10.8); Carbon Dioxide 24 mEq/L (19-29); Chloride 109 mEq/L (98-109); Globulin 2.8 g/dL (2.4-3.5); Glucose 99 mg/dL (70-99); Osmolality,Calculated 290 (280-300); Potassium 3.1 mEq/L (3.5-4.5); Sodium 141 mEq/L (136-145); Total Protein 5.4 g/dL (6.0-8.3); eGFR For African Americans > 60 (> 60); eGFR For Non-African Americans > 60 (> 60)
[2017-03-13] MEDS: MetroNIDAZOLE 500 MG/100 ML 500 MG/100 ML BAG IVPB SCH ×3 (06:12→18:10)
[2017-03-13] MEDS: Levofloxacin 750 MG/150 ML 750 MG/150 ML BAG IVPB SCH (10:32)
[2017-03-13] MEDS: Gabapentin 300 MG CAPSULE PO SCH ×2 (10:32→20:55)
[2017-03-13] MEDS ORDERED: Potassium Chloride 40 MEQ, Lidocaine 1% 2 ML in D5% in Water 500 ML IVPB ONE (11:32)
[2017-03-13] MEDS ORDERED: Magnesium Sulfate 4 GM in D5% in Water 100 ML IVPB ONE (11:32)
--- NOTE | 2017-03-13 11:36 | Internal Med Progress Note ---
Date of Encounter: 03/13/17 Time of Encounter: 11:34 - Assessment and plan (1) Diverticulitis Current Visit: Yes Status: Acute Assessment and plan: CT abdomen showed large segment of transverse and descending colon involving colitis as well as descending and sigmoid colon diverticulitis without any abscess or perforation. She has previous history of diverticulitis and perforation resulting in partial bowel resection. Currently on Levaquin and Flagyl and IV fluid. Afebrile and white count has normalized. Has not started by mouth yet (2) Colitis Current Visit: Yes Status: Acute Assessment and plan: Patient is still has epigastric and left-sided pain or lower abdominal pain is better In all transfer and descending colon and extensive colitis radiology raises question ischemic versus infectious. Increase IV fluid continue IV antibiotics still has (3) GI bleed Current Visit: Yes Status: Acute Assessment and plan: Sources perhaps colitis. Came in with hemoglobin of 14 and drops 4 points but now has stabilized. Qualifiers: GI bleed type/associated pathology: unspecified gastrointestinal hemorrhage type Qualified Code(s): K92.2 - Gastrointestinal hemorrhage, unspecified (4) HTN (hypertension) Current Visit: Yes Status: Chronic Assessment and plan: Continue home medication and daily monitoring Qualifiers: Hypertension type: essential hypertension Qualified Code(s): I10 - Essential (primary) hypertension (5) Hypokalemia Current Visit: Yes Status: Acute Assessment and plan: Low potassium and magnesium noted. Supplement potassium and magnesium and recheck. - Subjective Interval history: Admitted for acute diverticulitis. Has history of bowel perforation with previous episodes of diverticulitis and had multiple surgeries afterward. Considered high risk therefore we will watch her closely and follow her fever and lymphocyte count. 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 Diarrhea has already stopped. There was a concern if she is bleeding but by her description it appears that most of the time she has noticed bright red blood on toilet paper. Follow hemoglobin. Can be started on clear liquids. 03/11 admitted for acute diverticulitis and patient is on Levaquin and Flagyl. Extensive history of previous bowel perforation during diverticulitis and multiple surgeries. labs reviewed. Potassium 2.9 will be supplemented. Order follow-up potassium and magnesium. She still has epigastric discomfort but lower abdominal pain is improving. No diarrhea. She is on Prilosec 20 twice a day. Still had having rectal blood which is not as bright red as it was before. Her hemoglobin has come down from 11.5-10.8 today but this could be just hemodilution. Admission hemoglobin was 14 still showed if she is actively bleeding. We will continue to follow the hemoglobin and if it falls rapidly than a consult GI for colonoscopy. Plan discussed with patient.. 03/12 she feels that she is improving but is still has abdominal pain. Diarrhea has not stopped. Continue IV antibiotic considering the fact that she has extensive colitis and diverticulitis. 03/13 slowly improving but is still has some upper abdominal discomfort due to lower abdominal discomfort has resolved. She has transverse and descending colon colitis and sigmoid and rectal diverticulitis. I suspect colitis as a still's not in a stable condition. Her magnesium is only 1.2 this morning and potassium is 3.1. I suspect this is due to her colitis. We will supplement both continue IV antibiotics and his diarrhea stopped and abdominal discomfort improves more she can be discharged. I will increase it to full liquids to see if she tolerates.. - Constitutional Vitals: Temp Pulse Resp BP Pulse Ox 97.9 F 85 16 139/83 95 03/13/17 06:56 03/13/17 06:56 03/13/17 06:56 03/13/17 06:56 03/13/17 06:56 General appearance: Present: A&O X 3, no acute distress - Head Head exam: Present: atraumatic, normocephalic - Eye Eye exam: Present: PERRL, conjuntiva pink, sclera anicteric Pupils: Present: PERRL - Neck Neck exam general surgery: Present: supple, trachea midline. Absent: lymphadenopathy - Respiratory Respiratory exam: Present: CTAB. Absent: accessory muscle use, rales, rhonchi, wheezes - Cardiovascular Cardiovascular exam: Present: RRR, +S1, +S2. Absent: diastolic murmur, gallop, rubs, systolic murmur - GI/Abdominal GI/Abdominal exam: Present: normal bowel sounds, soft, tenderness, no peritoneal signs. Absent: distended - Extremities Exam Extremities exam: Present: warm, radial pulses palpable and symmetrical. Absent : calf tenderness, cyanotic, pedal edema - Neurological Exam Neurological exam: Present: CN II-XII intact, oriented X3, no focal deficits. Absent: pronater drift, facial droop, speech deficit - Skin Skin exam: Present: dry, intact Internal Medicine: Result - Labs CBC & Chem 7: 03/13/17 03:49 03/13/17 03:49 Labs: Short CBC 03/13/17 Range/Units 03:49 WBC 8.2 (4.3-11.1) K/mcL Hgb 10.2 L (11.5-15.4) g/dL Hct 30.5 L (35.3-44.9) % Plt Count 230 (140-400) K/mcL Neutrophils # 5.7 (1.6-8.9) K/mcL BMP 03/13/17 03:49 Sodium 141 Potassium 3.1 L Chloride 109 Carbon Dioxide 24 BUN 6 L Creatinine 0.65 Glucose 99 Calcium 8.3 L Liver Function 03/13/17 Range/Units 03:49 Total Bilirubin 0.4 (0.2-1.2) mg/dL AST 12 (5-34) Units/L ALT 8 (0-55) Units/L Alkaline Phosphatase 47 (38-126) Units/L Albumin 2.6 L (3.5-5.0) g/dL - ABG Interpretation ABG results: PT/INR, D-dimer PT 11.5 Seconds (9.4-12.1) 03/09/17 22:00 - VTE Documentation of Mechanical Device: Intermittent pneumatic compression device Consult Discharge Plan - Plan Referrals: NONE,PCP [Primary Care Provider] -
[2017-03-13] MEDS: 0.9 % Sodium Chloride 1,000 ML IVC SCH (13:08)
[2017-03-13] MEDS: Ondansetron 4 MG/2 ML VIAL IVP PRN (18:10)
[2017-03-13] MEDS: traZODone 50 MG TABLET PO SCH (20:55)
[2017-03-14] MEDS: MetroNIDAZOLE 500 MG/100 ML 500 MG/100 ML BAG IVPB SCH ×5 (03:39→18:00)
[2017-03-14] MEDS: 0.9 % Sodium Chloride 1,000 ML IVC SCH (03:40)
[2017-03-14 07:52] LABS: Basophils % 0.3 %; Eosinophils # 0.2 K/mcL (0.0-0.6); Eosinophils % 2.3 %; Hematocrit 29.4 % (35.3-44.9); Hemoglobin 9.9 g/dL (11.5-15.4); Immature Granulocytes % 0.9 % (0-4); Lymphocytes # 1.6 K/mcL (0.6-4.6); Lymphocytes % 23.8 %; Mean Corpuscular HGB Conc 33.7 g/dL (31.6-35.5); Mean Corpuscular Hemoglobin 32.2 pg (28.0-33.3); Mean Corpuscular Volume 95.8 fL (83.0-100.0); Mean Platelet Volume 9.2 fL (9.4-12.4); Monocytes # 0.6 K/mcL (0.0-1.3); Monocytes % 8.4 %; Neutrophils # 4.3 K/mcL (1.6-8.9); Nucleated Red Blood Cells 0.5 /100 WBC (0); Platelet Count 262 K/mcL (140-400); Red Blood Count 3.07 M/mcL (3.82-4.97); Red Cell Distribution Width 12.5 % (11.5-14.5); Segmented Neutrophils % 64.3 %
[2017-03-14] MEDS: Gabapentin 300 MG CAPSULE PO SCH (07:59)
[2017-03-14] MEDS: Levofloxacin 750 MG/150 ML 750 MG/150 ML BAG IVPB SCH (08:00)
[2017-03-14 08:07] LABS: Alanine Aminotransferase 13 Units/L (0-55); Albumin 2.5 g/dL (3.5-5.0); Albumin/Globulin Ratio 0.9 (1.1-2.2); Alkaline Phosphatase 45 Units/L (38-126); Aspartate Amino Transferase 18 Units/L (5-34); BUN/Creatinine Ratio 9 (6-26); Bilirubin,Total 0.4 mg/dL (0.2-1.2); Blood Urea Nitrogen 6 mg/dL (7-20); Carbon Dioxide 25 mEq/L (19-29); Chloride 110 mEq/L (98-109); Globulin 2.8 g/dL (2.4-3.5); Glucose 122 mg/dL (70-99); Magnesium 1.6 mg/dL (1.6-2.6); Osmolality,Calculated 291 (280-300); Sodium 141 mEq/L (136-145); Total Protein 5.3 g/dL (6.0-8.3); eGFR For African Americans > 60 (> 60); eGFR For Non-African Americans > 60 (> 60)
[2017-03-14 09:24] LABS: Potassium 4.2 mEq/L (3.5-4.5)
--- NOTE | 2017-03-14 17:05 | Internal Med Progress Note ---
Date of Encounter: 03/14/17 Time of Encounter: 17:03 - Assessment and plan (1) Diverticulitis Current Visit: Yes Status: Acute Assessment and plan: CT abdomen showed large segment of transverse and descending colon involving colitis as well as descending and sigmoid colon diverticulitis without any abscess or perforation. She has previous history of diverticulitis and perforation resulting in partial bowel resection. Currently on Levaquin and Flagyl and IV fluid. Afebrile and white count has normalized. Has not started by mouth yet (2) Colitis Current Visit: Yes Status: Acute Assessment and plan: Patient is still has epigastric and left-sided pain or lower abdominal pain is better In all transfer and descending colon and extensive colitis radiology raises question ischemic versus infectious. Increase IV fluid continue IV antibiotics still has (3) GI bleed Current Visit: Yes Status: Acute Assessment and plan: Sources perhaps colitis. Came in with hemoglobin of 14 and drops 4 points but now has stabilized. Qualifiers: GI bleed type/associated pathology: unspecified gastrointestinal hemorrhage type Qualified Code(s): K92.2 - Gastrointestinal hemorrhage, unspecified (4) HTN (hypertension) Current Visit: Yes Status: Chronic Assessment and plan: Continue home medication and daily monitoring Qualifiers: Hypertension type: essential hypertension Qualified Code(s): I10 - Essential (primary) hypertension (5) Hypokalemia Current Visit: Yes Status: Acute Assessment and plan: Low potassium and magnesium noted. Supplement potassium and magnesium and recheck. - Subjective Interval history: Admitted for acute diverticulitis. Has history of bowel perforation with previous episodes of diverticulitis and had multiple surgeries afterward. Considered high risk therefore we will watch her closely and follow her fever and lymphocyte count. On examination abdomen is table tender sludge without any rebound tenderness and active bowel sounds. Diarrhea has already stopped. There was a concern if she is bleeding but by her description it appears that most of the time she has noticed bright red blood on toilet paper. Follow hemoglobin. Can be started on clear liquids. 03/11 admitted for acute diverticulitis and patient is on Levaquin and Flagyl. Extensive history of previous bowel perforation during diverticulitis and multiple surgeries. labs reviewed. Potassium 2.9 will be supplemented. Order follow-up potassium and magnesium. She still has epigastric discomfort but lower abdominal pain is improving. No diarrhea. She is on Prilosec 20 twice a day. Still had having rectal blood which is not as bright red as it was before. Her hemoglobin has come down from 11.5-10.8 today but this could be just hemodilution. Admission hemoglobin was 14 still showed if she is actively bleeding. We will continue to follow the hemoglobin and if it falls rapidly than a consult GI for colonoscopy. Plan discussed with patient.. 03/12 she feels that she is improving but is still has abdominal pain. Diarrhea has not stopped. Continue IV antibiotic considering the fact that she has extensive colitis and diverticulitis. 03/13 slowly improving but is still has some upper abdominal discomfort due to lower abdominal discomfort has resolved. She has transverse and descending colon colitis and sigmoid and rectal diverticulitis. I suspect colitis as a still's not in a stable condition. Her magnesium is only 1.2 this morning and potassium is 3.1. I suspect this is due to her colitis. We will supplement both continue IV antibiotics and his diarrhea stopped and abdominal discomfort improves more she can be discharged. I will increase it to full liquids to see if she tolerates.. 03/14 no pain or diarrhea. Advanced to full diet. Patient is concerned follows switching her to oral antibiotic as with Levaquin and she developed GI symptoms. Apparently she is been allergic to multiple antibiotics and the choices very limited. I offered her that we can switch her to Levaquin and Flagyl by mouth and see if she tolerates well and then discharge her on that but she wants to get IV medication as long as she can get while she is here. We will see if she tolerates full diet. - Constitutional Vitals: Temp Pulse Resp BP Pulse Ox 98.7 F 85 16 114/73 95 03/14/17 13:33 03/14/17 13:33 03/14/17 13:33 03/14/17 13:33 03/14/17 13:33 General appearance: Present: A&O X 3, no acute distress - Head Head exam: Present: atraumatic, normocephalic - Eye Eye exam: Present: PERRL, conjuntiva pink, sclera anicteric Pupils: Present: PERRL - Neck Neck exam general surgery: Present: supple, trachea midline. Absent: lymphadenopathy - Respiratory Respiratory exam: Present: CTAB. Absent: accessory muscle use, rales, rhonchi, wheezes - Cardiovascular Cardiovascular exam: Present: RRR, +S1, +S2. Absent: diastolic murmur, gallop, rubs, systolic murmur - GI/Abdominal GI/Abdominal exam: Present: normal bowel sounds, soft, no peritoneal signs. Absent: distended, tenderness - Extremities Exam Extremities exam: Present: warm, radial pulses palpable and symmetrical. Absent : calf tenderness, cyanotic, pedal edema - Neurological Exam Neurological exam: Present: CN II-XII intact, oriented X3, no focal deficits. Absent: pronater drift, facial droop, speech deficit - Skin Skin exam: Present: dry, intact Internal Medicine: Result - Labs CBC & Chem 7: 03/14/17 06:23 03/14/17 06:23 Labs: Short CBC 03/14/17 Range/Units 06:23 WBC 6.6 (4.3-11.1) K/mcL Hgb 9.9 L (11.5-15.4) g/dL Hct 29.4 L (35.3-44.9) % Plt Count 262 (140-400) K/mcL Neutrophils # 4.3 (1.6-8.9) K/mcL BMP 03/14/17 06:23 Sodium 141 Potassium 4.2 D Chloride 110 H Carbon Dioxide 25 BUN 6 L Creatinine 0.64 Glucose 122 H Calcium 8.0 L Liver Function 03/14/17 Range/Units 06:23 Total Bilirubin 0.4 (0.2-1.2) mg/dL AST 18 (5-34) Units/L ALT 13 (0-55) Units/L Alkaline Phosphatase 45 (38-126) Units/L Albumin 2.5 L (3.5-5.0) g/dL - ABG Interpretation ABG results: PT/INR, D-dimer PT 11.5 Seconds (9.4-12.1) 03/09/17 22:00 - VTE Documentation of Mechanical Device: Intermittent pneumatic compression device Consult Discharge Plan - Plan Referrals: NONE,PCP [Primary Care Provider] -
[2017-03-15] MEDS: Gabapentin 300 MG CAPSULE PO SCH ×2 (00:07→08:07)
[2017-03-15] MEDS: traZODone 50 MG TABLET PO SCH (00:07)
[2017-03-15] MEDS: Simethicone 80 MG TAB.CHEW PO PRN (00:07)
[2017-03-15] MEDS: MetroNIDAZOLE 500 MG/100 ML 500 MG/100 ML BAG IVPB SCH (05:16)
[2017-03-15 05:41] LABS: Hematocrit 30.3 % (35.3-44.9); Hemoglobin 10.1 g/dL (11.5-15.4); Immature Granulocytes % 1.4 % (0-4); Immature Platelets 1.1 % (1.1-6.1); Lymphocytes % 26.8 %; Mean Corpuscular HGB Conc 33.3 g/dL (31.6-35.5); Mean Corpuscular Hemoglobin 32.2 pg (28.0-33.3); Mean Corpuscular Volume 96.5 fL (83.0-100.0); Mean Platelet Volume 8.7 fL (9.4-12.4); Platelet Count 295 K/mcL (140-400); Red Blood Count 3.14 M/mcL (3.82-4.97); Red Cell Distribution Width 12.7 % (11.5-14.5); Segmented Neutrophils % 60.4 %
[2017-03-15 05:42] LABS: Basophils % 0.3 %; Eosinophils # 0.1 K/mcL (0.0-0.6); Eosinophils % 2.1 %; Lymphocytes # 1.7 K/mcL (0.6-4.6); Monocytes # 0.6 K/mcL (0.0-1.3); Neutrophils # 3.8 K/mcL (1.6-8.9)
[2017-03-15 06:02] LABS: Alanine Aminotransferase 19 Units/L (0-55); Albumin 2.7 g/dL (3.5-5.0); Alkaline Phosphatase 47 Units/L (38-126); Aspartate Amino Transferase 25 Units/L (5-34); BUN/Creatinine Ratio 13 (6-26); Bilirubin,Total 0.3 mg/dL (0.2-1.2); Blood Urea Nitrogen 9 mg/dL (7-20); Calcium 8.6 mg/dL (8.6-10.8); Carbon Dioxide 26 mEq/L (19-29); Chloride 111 mEq/L (98-109); Globulin 2.6 g/dL (2.4-3.5); Glucose 104 mg/dL (70-99); Osmolality,Calculated 291 (280-300); Potassium 3.6 mEq/L (3.5-4.5); Sodium 141 mEq/L (136-145); Total Protein 5.3 g/dL (6.0-8.3); eGFR For African Americans > 60 (> 60); eGFR For Non-African Americans > 60 (> 60)
[2017-03-15] MEDS: Levofloxacin 750 MG/150 ML 750 MG/150 ML BAG IVPB SCH (08:08)
[2017-03-15 08:49] VITALS: BP 157/98
--- NOTE | 2017-03-15 09:01 | Discharge Summary ---
Date of Encounter: 03/15/17 Time of Encounter: 08:58 - Discharge Diagnosis (1) Diverticulitis Priority: Primary Status: Acute (2) Colitis Priority: Primary Status: Acute (3) GI bleed Priority: Primary Status: Acute Qualifiers: GI bleed type/associated pathology: unspecified gastrointestinal hemorrhage type Qualified Code(s): K92.2 - Gastrointestinal hemorrhage, unspecified (4) HTN (hypertension) Priority: Secondary Status: Chronic Qualifiers: Hypertension type: essential hypertension Qualified Code(s): I10 - Essential (primary) hypertension (5) Hypokalemia Priority: Secondary Status: Acute - Discharge Medications Prescriptions: Levofloxacin [Levaquin] 500 mg PO DAILY #9 tablet metroNIDAZOLE [Flagyl] 500 mg PO TID #27 tablet Omeprazole [PriLOSEC] 20 mg PO BIDAC #60 capsule. [place] Medications: Atenolol [Tenormin] 50 mg PO DAILY 03/09/17 [History] Calcium Carbonate [Calcium] 1,000 mg PO DAILY 03/09/17 [History] Cyanocobalamin (B-12) [Vitamin B12] 1,000 mcg IM QMONTH 03/09/17 [History] DULoxetine [Cymbalta] 90 mg PO DAILY 03/09/17 [History] Ergocalciferol (VITAMIN D2) [Vitamin D2] 50,000 unit PO Q2W 03/09/17 [History] Gabapentin [Neurontin] 300 mg PO HS 03/09/17 [History] Gabapentin [Neurontin] 600 mg PO QAM 03/09/17 [History] Lisinopril [Zestril] 5 mg PO DAILY 03/09/17 [History] Teriparatide [Forteo] 2.4 ml SQ HS 03/09/17 [History] Trazodone HCl 100 mg PO HS 03/09/17 [History] hydroCHLOROthiazide [Hydrochlorothiazide] 25 mg PO DAILY 03/09/17 [History] Levofloxacin [Levaquin] 500 mg PO DAILY #9 tablet 03/15/17 [Rx] Omeprazole [PriLOSEC] 20 mg PO BIDAC #60 capsule. 03/15/17 [Rx] metroNIDAZOLE [Flagyl] 500 mg PO TID #27 tablet 03/15/17 [Rx] Allergies/Adverse Reactions: 3 Allergy/AdvReac Type Severity Reaction Status Date / Time acetaminophen [From NyQuil] Allergy Anaphylaxis Verified 03/09/17 21:19 Cefadroxil [From Duricef] Allergy Difficulty Verified 03/09/17 23:06 Breathing dextromethorphan Allergy Anaphylaxis Verified 03/09/17 21:19 [From NyQuil] doxycycline Allergy Hives Verified 03/09/17 23:06 doxylamine [From NyQuil] Allergy Anaphylaxis Verified 03/09/17 21:19 Erythromycin Base Allergy Hives Verified 03/09/17 23:06 Grapefruit Allergy Anaphylaxis Verified 03/09/17 21:19 Hydromorphone [From Dilaudid] Allergy Hallucinati Verified 03/09/17 23:06 ng levofloxacin [From Levaquin] Allergy Gastrointestinal Verified 03/09/17 23:08 Upset morphine Allergy Confusion Verified 03/09/17 23:06 pseudoephedrine [From NyQuil] Allergy Difficulty Verified 03/09/17 23:06 Breathing Sulfa (Sulfonamide Allergy Hives Verified 03/09/17 21:19 Antibiotics) fentanyl AdvReac Difficulty Verified 03/09/17 21:19 Breathing Date of admission: 03/10/17 02:47 Primary care physician: PCP NONE Discharging clinician: Marce Moraes Anticipated date of discharge: 03/15/17 - Patient Status Disposition: Home, Self-Care Condition: Fair Overall status at discharge: patient is progressing back to baseline - Discharge Instructions Follow Up With: NONE,PCP [Primary Care Provider] - - Diet and Activity Activity: resume usual activities as tolerated Diet: advance to your usual diet (Soft diet for two weeks) Hospital course: Ms. Egan is a 61 year old female Admitted for acute diverticulitis. Has history of bowel perforation with previous episodes of diverticulitis and had multiple surgeries afterward. Considered high risk therefore patient was kept on IV antibiotics for extra couple of days. She became afebrile and white count normalized and now she is tolerating full diet diarrhea has already stopped electrolytes are corrected. Recommend to follow with family doctor and arrange for a colonoscopy in next 2 weeks for follow-up. - Time Spent with Patient Total time spent providing and/or coordinating discharge services: Greater than 30 minutes - Constitutional Vitals: Temp Pulse Resp BP Pulse Ox 97.7 F 96 16 157/98 95 03/15/17 08:46 03/15/17 08:46 03/15/17 08:46 03/15/17 08:46 03/15/17 08:46 General appearance: Present: A&O X 3, no acute distress - Head Head exam: Present: atraumatic, normocephalic - Eye Eye exam: Present: PERRL, conjuntiva pink, sclera anicteric Pupils: Present: PERRL - Neck Neck exam general surgery: Present: supple, trachea midline. Absent: lymphadenopathy - Respiratory Respiratory exam: Present: CTAB. Absent: accessory muscle use, rales, rhonchi, wheezes - Cardiovascular Cardiovascular exam: Present: RRR, +S1, +S2. Absent: diastolic murmur, gallop, rubs, systolic murmur - GI/Abdominal GI/Abdominal exam: Present: normal bowel sounds, soft, no peritoneal signs. Absent: distended, tenderness - Extremities Exam Extremities exam: Present: warm, radial pulses palpable and symmetrical. Absent : calf tenderness, cyanotic, pedal edema - Neurological Exam Neurological exam: Present: CN II-XII intact, oriented X3, no focal deficits. Absent: pronater drift, facial droop, speech deficit - Skin Skin exam: Present: dry, intact - VTE Documentation of Mechanical Device: Intermittent pneumatic compression device
[2017-03-15] MEDS ORDERED: FLUARIX QUAD 2017-18 36MOS UP/PF 0.5 ML SYRINGE IM ONE (09:25)
== END 2017-03-15 11:52 | disposition home or self-care (01) | DRG 392 ==
LOC: EMEROO 21:11 → 3ANU 21:11
PROVIDERS: ADMIT Internal Medicine; ATTEND Hospitalist